=== PATIENT | female | born 1965 | race Caucasian/White ===

== ENCOUNTER 2020-04-02 15:06 | Emergency (ER) | payer BC, SELFPAY ==
[2020-04-02 15:26] VITALS: BP 147/89; PULSE 89; RESP 20; TEMP 36.7; O2SAT 98; BMI 41.9
--- NOTE | 2020-04-02 15:38 | HMH.EDUTC ---
[facility] Disposition Clinical Impression: Viral syndrome Diarrhea Qualifiers: Diarrhea type: unspecified type Qualified Code(s): R19.7 - Diarrhea, unspecified Disposition: Home, Self-Care Condition on Discharge: Good Instructions: Diarrhea, Preventing the Spread of Coronavirus Discharge Instructions Additional Instructions: Drink plenty of fluids. Take tylenol for pain or fever. Return if you begin to have difficulty breathing. Follow up with your regular doctor. GO TO THE ER FOR ANY WORSENING SYMPTOMS Prescriptions: Ondansetron [Zofran 4mg ODT] 4 mg PO Q8HP PRN #12 tab.rapdis PRN Reason: Nausea Transmission Status: Received by [facility] Referrals: PCP,Fabby [Primary Care Provider] - Time of Disposition: 15:44 Medical Decision Making - Medical Records Medical records reviewed: No: I reviewed the patient's medical records. - Papito Inquiry Pt receiving controlled substance: No Vital Signs: 04/02/20 15:26 04/02/20 15:57 Temperature 98.1 F 98.1 F Temperature Source Oral Oral Pulse Rate 89 Pulse Rate [Right Brachial] 89 Respiratory Rate 20 20 Blood Pressure 147/89 H Blood Pressure [Right Arm] 147/89 H Blood Pressure Mean [Right Arm] 108 Blood Pressure Source Automatic Cuff Blood Pressure Source [Right Arm] Automatic Cuff Blood Pressure Position Sitting Blood Pressure Position [Right Arm] Sitting 02 Sat by Pulse Oximetry 98 Oxygen Delivery Method Room Air Orders (Tests/Meds): ORDERS Category Date Time Status Covid-19 Nasal PCR ([facility]) Routine Lab 04/02/20 15:19 Received [facility] HPI - General Stated complaint: covid test Time Seen by Provider: 04/02/20 15:38 Mode of Arrival: Ambulatory Source of Information: Patient Limitations: No Limitations Description of Symptoms (Recalled from Triage Doc. by RN): diarrhea, wants covid test HEENT Symptoms (Recalled from RN notes): No Resp Symptoms (Recalled from RN notes): No Skin Symptoms (Recalled from RN notes): No MS Symptoms (Recalled from RN notes): No Functional Status (Recalled from RN notes): wnl - History of Present Illness Provider Complaint: She states that she has had diarrhea and nausea for the past 1 day. She denies any fever/chills/body aches/cough. - Related Data Previous Rx's Medication Instructions Recorded Promethazine/Dextromethorphan 5 ml PO Q6HP PRN #240 ml 07/12/18 [Promethazine-Dm Syrup] Ondansetron [Zofran 4mg ODT] 4 mg PO Q8HP PRN #12 tab.rapdis 04/02/20 Allergies Allergy/AdvReac Type Severity Reaction Status Date / Time No Known Allergies Allergy Unverified 04/26/17 14:03 - Worker's Comp Is this a Worker's Comp case?: No [facility] History - Hepatitis A Screen Drug use history?: No High risk sexual behaviors?: No History of sexually transmitted infection?: No Currently employed?: No Childcare worker?: No Do you have indoor plumbing?: Yes Do you have electricity?: Yes Attestation statement:: This patient has been screened for Hepatitis A risk factors. I have reviewed the patient's past medical history: Yes - Social History Alcohol Intake: never Occupational Status: employed Housing: house Household Members: spouse ROS Obtained: Yes All systems reviewed & no additional complaints - Constitutional Constitutional: Reports system reviewed and no additional complaints, except as docu - Eyes Eyes: Reports system reviewed and no additional complaints, except as docu - ENT Ears, Nose, Mouth, and Throat: Reports system reviewed and no additional complaints, except as docu - Cardiovascular Cardiovascular: Reports system reviewed and no additional complaints, except as docu - Respiratory Respiratory: Yes system reviewed and no additional complaints, except as docu - Gastrointestinal Gastrointestingal: Reports: system reviewed and no additional complaints, except as docu Physical Exam - General General appearance: alert, in no appar
[2020-04-02 15:57] VITALS: BP 147/89; PULSE 89; RESP 20; TEMP 36.7; O2SAT 98
== END 2020-04-02 15:58 | disposition home or self-care (01) ==
PROVIDERS: Emergency Provider Nurse Practitioner Family
DX: Z20.828 Contact with and (suspected) exposure to other viral communicable diseases (principal); B34.9 Viral infection, unspecified
CPT/HCPCS: 99201; U0003

== ENCOUNTER 2020-05-02 12:53 | Emergency (ER) | payer BC, SELFPAY ==
[2020-05-02 13:01] VITALS: BP 168/80; PULSE 96; RESP 18; TEMP 37.2; O2SAT 96; BMI 28.1
--- NOTE | 2020-05-02 13:11 | HMH.EDGENADL ---
ED Disposition Clinical Impression: Pharyngitis Qualifiers: Pharyngitis/tonsillitis etiology: other specified organisms Qualified Code(s): J02.8 - Acute pharyngitis due to other specified organisms Disposition: Home, Self-Care Condition on Discharge: Good Referrals: PCP,No [Primary Care Provider] - 3 days Time of Disposition: 13:33 - Critical Care Critical Care Time: No Attestation: On 05/02/20, the high probability of a clinically significant, sudden or life threatening deterioration of the following system(s) required my full and direct attention, intervention and personal management. The time I documented below is in addition to time spent performing reported procedures but includes the following listed in this critical care notation. Medical Decision Making - Papito Inquiry Pt receiving controlled substance: No Vital Signs: 05/02/20 13:01 Temperature 98.9 F Temperature Source Oral Pulse Rate [Radial] 96 H Respiratory Rate 18 Blood Pressure [Right Arm] 168/80 H Blood Pressure Mean [Right Arm] 109 Blood Pressure Source [Right Arm] Automatic Cuff Blood Pressure Position [Right Arm] Sitting 02 Sat by Pulse Oximetry 96 Oxygen Delivery Method Room Air - Lab Data Lab Results 05/02/20 12:55: Group A Strep Rapid Negative Orders (Tests/Meds): ORDERS Category Date Time Status Strep Screen Confirmation Stat Micro 05/02/20 12:55 Received Medical Decision Narrative: 55yo F evaluated for sore throat and headache. Strep screen obtained per protocol is negative. Patient endorses significant amount of postnasal drainage. Patient already takes numerous [id number] antiallergy medications. Instructed her she could take Flonase twice daily to help improve the inflammation. Patient voiced understanding. Follow-up with PCP next week. General Adult HPI - General Chief complaint: PAIN Stated complaint: sore throat Time Seen by Provider: 05/02/20 13:11 Mode of Arrival: Ambulatory Limitations: No Limitations Description of Symptoms (Recalled from ER Triage Doc. by RN): Headache, sore throat since yesterday. - History of Present Illness HPI narrative: 55yo F evaluated for sore throat and headache since yesterday. Patient denies fever, nausea/vomiting/diarrhea. Patient denies any known sick contact. Patient denies cough beyond her chronic, allergic cough. - Related Data Previous Rx's Medication Instructions Recorded Promethazine/Dextromethorphan 5 ml PO Q6HP PRN #240 ml 03/06/19 [Promethazine-Dm Syrup] Ondansetron [Zofran 4mg ODT] 4 mg PO Q8HP PRN #12 tab.pauldis 04/02/20 Allergies Allergy/AdvReac Type Severity Reaction Status Date / Time No Known Allergies Allergy Unverified 04/26/17 14:03 [facility] History - Hepatitis A Screen Drug use history?: No High risk sexual behaviors?: No History of sexually transmitted infection?: No Currently employed?: No Childcare worker?: No Do you have indoor plumbing?: Yes Do you have electricity?: Yes Attestation statement:: This patient has been screened for Hepatitis A risk factors. I have reviewed the patient's past medical history: Yes - Social History Alcohol Intake: never Occupational Status: employed Housing: house Household Members: spouse ROS Obtained: Yes All systems reviewed & no additional complaints Physical Exam - General General appearance: alert, in no apparent distress - Head Head exam: atraumatic, normocephalic, normal inspection - Eye Eye exam: Present: normal appearance, PERRL, EOMI - ENT ENT exam: Present: normal exam, normal oropharynx, mucous membranes moist, other (Posterior pharynx erythematous without blistering or exudate) - Neck Neck exam: Present: normal inspection, full ROM, trachea midline. Absent: meningismus, lymphadenopathy - Respiratory Respiratory exam: Present: normal lung sounds bilaterally. Absent: respiratory distress - Cardiovascular Cardiovascular exam: Present:
[2020-05-02 13:21] LABS: Strep Scrn Group A (Rapid) Negative (Negative)
[2020-05-02 13:38] VITALS: BP 168/80; PULSE 96; RESP 18; TEMP 37.2; O2SAT 96
== END 2020-05-02 13:41 | disposition home or self-care (01) ==
PROVIDERS: Emergency Provider Family Medicine
DX: J02.8 Acute pharyngitis due to other specified organisms (principal)
CPT/HCPCS: 87430; 99282

== ENCOUNTER 2020-06-08 14:57 | Emergency (ER) | payer BC, SELFPAY ==
[2020-06-08 15:40] VITALS: BP 134/74; PULSE 85; RESP 14; TEMP 36.6; O2SAT 98; BMI 43.2
--- NOTE | 2020-06-08 15:59 | HMH.EDUTC ---
[facility] Disposition Clinical Impression: Viral syndrome Sinusitis Qualifiers: Sinusitis location: unspecified location Chronicity: acute Recurrence: non-recurrent Qualified Code(s): J01.90 - Acute sinusitis, unspecified Disposition: Home, Self-Care Condition on Discharge: Good Instructions: DI for Sinusitis, Preventing the Spread of Coronavirus Discharge Instructions Additional Instructions: Drink plenty of fluids. Take tylenol for pain or fever. Return if you begin to have difficulty breathing. Follow up with your regular doctor. GO TO THE ER FOR ANY WORSENING SYMPTOMS Prescriptions: Azithromycin [Z-Kartik 250mg Tab*] 250 mg PO UD DOSE PK #6 tab Transmission Status: Received by [facility] Referrals: PCP,No [Primary Care Provider] - Forms: Work/School Release Time of Disposition: 16:09 Medical Decision Making - Medical Records Medical records reviewed: No: I reviewed the patient's medical records. - Papito Inquiry Pt receiving controlled substance: No Vital Signs: 06/08/20 15:40 06/08/20 16:14 Temperature 97.8 F 97.8 F Temperature Source Oral Pulse Rate 85 Pulse Rate [Right Brachial] 85 Respiratory Rate 14 14 Blood Pressure 134/74 Blood Pressure [Right Arm] 134/74 Blood Pressure Mean [Right Arm] 94 Blood Pressure Source [Right Arm] Automatic Cuff Blood Pressure Position [Right Arm] Sitting 02 Sat by Pulse Oximetry 98 Oxygen Delivery Method Room Air - Lab Data Lab Results 06/08/20 15:56: Influenza Type A Ag Negative, Influenza Type B Ag Negative [facility] HPI - General Stated complaint: chills, fever, body aches Time Seen by Provider: 06/08/20 15:59 - History of Present Illness Provider Complaint: She c/o having a cough, body aches, low grade fever and feeling very bad since yesterday evening. She has had both shots of her covid-19 vaccine. She denies any shortness of breath. - Related Data Previous Rx's Medication Instructions Recorded Promethazine/Dextromethorphan 5 ml PO Q6HP PRN #240 ml 07/12/18 [Promethazine-Dm Syrup] Ondansetron [Zofran 4mg ODT] 4 mg PO Q8HP PRN #12 tab.rapdis 04/02/20 Azithromycin [Z-Kartik 250mg Tab*] 250 mg PO UD DOSE PK #6 tab 06/08/20 Allergies Allergy/AdvReac Type Severity Reaction Status Date / Time No Known Allergies Allergy Unverified 04/26/17 14:03 [facility] History - Hepatitis A Screen Attestation statement:: This patient has been screened for Hepatitis A risk factors. I have reviewed the patient's past medical history: Yes - Social History Alcohol Intake: never Occupational Status: employed Housing: house Household Members: spouse ROS Obtained: Yes All systems reviewed & no additional complaints - Constitutional Constitutional: Reports system reviewed and no additional complaints, except as docu - Eyes Eyes: Reports system reviewed and no additional complaints, except as docu - ENT Ears, Nose, Mouth, and Throat: Reports system reviewed and no additional complaints, except as docu - Cardiovascular Cardiovascular: Reports system reviewed and no additional complaints, except as docu - Respiratory Respiratory: Reports system reviewed and no additional complaints, except as docu - Gastrointestinal Gastrointestingal: Reports: system reviewed and no additional complaints, except as docu Physical Exam - General General appearance: alert, in no apparent distress - Head Head exam: atraumatic, normocephalic, normal inspection - Eye Eye exam: Present: normal appearance, PERRL, EOMI - ENT ENT exam: Present: mucous membranes moist, normal external ear exam - Expanded ENT Exam TM/Canal exam: Bilateral TM: erythema Nose exam: Present: sinus tenderness Mouth exam: Present: normal external inspection Teeth exam: Present: normal inspection Throat exam: Present: tonsillar erythema. Absent: tonsillomegaly, tonsillar exudate, R peritonsillar mass, L peritonsillar mass - Neck
[2020-06-08 16:14] VITALS: BP 134/74; PULSE 85; RESP 14; TEMP 36.6; O2SAT 98
[2020-06-08 19:11] LABS: UTC Influenza A Antigen Negative (Negative)
[2020-06-08 19:12] LABS: UTC Influenza B Antigen Negative (Negative)
== END 2020-06-08 16:20 | disposition home or self-care (01) ==
PROVIDERS: Emergency Provider Nurse Practitioner Family
DX: Z20.822 Contact with and (suspected) exposure to COVID-19 (principal); J01.90 Acute sinusitis, unspecified; B34.9 Viral infection, unspecified
CPT/HCPCS: 87804; 99202; G0463; U0003

== ENCOUNTER 2021-03-04 11:49 | Emergency (ER) | payer BC, SELFPAY ==
[2021-03-04 12:50] VITALS: BP 155/94; PULSE 82; RESP 20; TEMP 36.9; O2SAT 98; BMI 38.9
--- NOTE | 2021-03-04 13:36 | HMH.EDUTC ---
[facility] Disposition Clinical Impression: Sinusitis Qualifiers: Sinusitis location: unspecified location Chronicity: acute Recurrence: non-recurrent Qualified Code(s): J01.90 - Acute sinusitis, unspecified Acute bronchitis Qualifiers: Bronchitis organism: unspecified organism Qualified Code(s): J20.9 - Acute bronchitis, unspecified Disposition: Home, Self-Care Condition on Discharge: Good Instructions: DI for Sinusitis Additional Instructions: Drink plenty of fluids. Take tylenol or ibuprofen for pain or fever. Take the medications as directed. Follow up with your regular doctor. GO TO THE ER FOR ANY WORSENING SYMPTOMS Quarantine until you know the results of your covid-19 test. If it is positive, the health department should call you and give you further instructions about your length of Quarantine and other things. Notify your school or workplace of your results and follow their instructions regarding return to work/school. Prescriptions: methylPREDNISolone [Medrol] 4 mg PO DIRECTED 6 Days #21 packet Transmission Status: Received by [facility] #[id number] Benzonatate [Tessalon Perle 100mg Cap] 100 mg PO TIDP PRN #30 cap PRN Reason: Cough Transmission Status: Received by [facility] #[id number] Azithromycin [Z-Kartik 250mg Tab*] 250 mg PO UD DOSE PK #6 tab Transmission Status: Received by [facility] #[id number] Referrals: Provider,Referral, [Primary Care Provider] - Forms: Work/School Release Time of Disposition: 13:44 Medical Decision Making - Medical Records Medical records reviewed: No: I reviewed the patient's medical records. - Papito Inquiry Pt receiving controlled substance: No Vital Signs: 03/04/21 12:50 03/04/21 13:45 Temperature 98.4 F 98.4 F Temperature Source Oral Pulse Rate 82 Pulse Rate [Right Brachial] 82 Respiratory Rate 20 20 Blood Pressure 155/94 H Blood Pressure [Right Arm] 155/94 H Blood Pressure Mean [Right Arm] 114 Blood Pressure Source [Right Arm] Automatic Cuff Blood Pressure Position [Right Arm] Sitting 02 Sat by Pulse Oximetry 98 Oxygen Delivery Method Room Air - Lab Data Lab results reviewed: Yes: I reviewed the patient's lab results. [facility] HPI - General Stated complaint: sore throat, soa, congestion, cough Time Seen by Provider: 03/04/21 13:37 Mode of Arrival: Ambulatory Source of Information: Patient Limitations: No Limitations Description of Symptoms (Recalled from Triage Doc. by RN): PATIENT C/O COUGH, CONGESTION, RUNNY NOSE, HEADACHE, AND SORE THROAT X 4 DAYS HEENT Symptoms (Recalled from RN notes): Yes Resp Symptoms (Recalled from RN notes): Yes Skin Symptoms (Recalled from RN notes): No MS Symptoms (Recalled from RN notes): No Functional Status (Recalled from RN notes): WNL - History of Present Illness Provider Complaint: She c/o sinus congestion and a cough for the past 3 days. She has been vaccinated against covid-19 and she has had a booster shot also. 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 But she thinks that she is getting the bronchitis and sinus infection that she gets every year around this time. - Related Data Previous Rx's Medication Instructions Recorded Promethazine/Dextromethorphan 5 ml PO Q6HP PRN #240 ml 07/12/18 [Promethazine-Dm Syrup] Ondansetron [Zofran 4mg ODT] 4 mg PO Q8HP PRN #12 tab.rapdis 04/02/20 Azithromycin [Z-Kartik 250mg Tab*] 250 mg PO UD DOSE PK #6 tab 06/08/20 Azithromycin [Z-Kartik 250mg Tab*] 250 mg PO UD DOSE PK #6 tab 03/04/21 Benzonatate [Tessalon Perle 100mg 100 mg PO TIDP PRN #30 cap 03/04/21 Cap] methylPREDNISolone [Medrol] 4 mg PO DIRECTED 6 Days #21 03/04/21 packet Allergies Allergy/AdvReac Type Severity Reaction Status Date / Time No Known Allergies Allergy Verified 03/04/21 13:20 - Worker's Comp Is this a Worker's Comp case?: No [facility] History - Hepatitis A Screen Drug use history?: No High risk sexu
[2021-03-04 13:45] VITALS: BP 155/94; PULSE 82; RESP 20; TEMP 36.9; O2SAT 98
== END 2021-03-04 13:48 | disposition home or self-care (01) ==
PROVIDERS: Emergency Provider Nurse Practitioner Family
DX: J01.90 Acute sinusitis, unspecified (principal); J20.9 Acute bronchitis, unspecified; E11.9 Type 2 diabetes mellitus without complications
CPT/HCPCS: 99202; C9803; G0463; U0003; U0005

== ENCOUNTER 2022-03-08 12:56 | Emergency (ER) | payer BC, SELFPAY ==
[2022-03-08 14:15] VITALS: BP 147/87; PULSE 104; RESP 22; TEMP 37.1; O2SAT 94; BMI 37.4
--- NOTE | 2022-03-08 14:19 | EXP.UTC ---
Discharge Plan Disposition Patient Disposition: Home, Self-Care Condition: Good Prescriptions Prescriptions: New benzonatate [benzonatate] 100 mg capsule 100 mg PO TIDP PRN (Reason: Cough) Qty: 30 0RF methylprednisolone 4 mg Tablets,Dose Pack 4 mg PO DIRECTED Qty: 21 0RF amoxicillin-pot clavulanate 875-125 mg Tablet 1 tab PO Q12H Qty: 20 0RF fluconazole [Diflucan] 150 mg tablet 150 mg PO ONCE Qty: 1 2RF No Action promethazine-DM 473 ML syrup 5 ml PO Q6HP PRN (Reason: Cough) Qty: 240 0RF ondansetron 4 MG tablet,disintegrating 4 mg PO Q8HP PRN (Reason: Nausea) Qty: 12 0RF azithromycin 250 MG tablet 250 mg PO UD DOSE PK Qty: 6 0RF Rx Instructions: Take two (2) tablets today, then one (1) tablet days #2 thru #5 azithromycin 250 MG tablet 250 mg PO UD DOSE PK Qty: 6 0RF Rx Instructions: Take two (2) tablets today, then one (1) tablet days #2 thru #5 benzonatate 100 MG capsule 100 mg PO TIDP PRN (Reason: Cough) Qty: 30 0RF methylprednisolone 4 MG tablets,dose pack 4 mg PO DIRECTED 6 Days Qty: 21 0RF Referrals Follow up/Referrals: Travis Gamboa MD [Primary Care Provider] - See instructions Activity Restrictions/Add. Instructions Additional Instructions/Restrictions: Drink plenty of fluids. Take tylenol or ibuprofen for pain or fever. Take the medications as directed. Follow up with your regular doctor. GO TO THE ER FOR ANY WORSENING SYMPTOMS Don't start the oral steroids until tomorrow, since you had the shot here today. Clinical Impressions Clinical Impression: COPD exacerbation Stand Alone Forms Stand Alone Forms: Work/School Release Instructions Patient Instructions: DI for Strep Throat Discharge ED Provider: Deepak Garcia [facility] General Stated complaint: cough,sore throat,headache,congestion Time Seen by Provider: 03/08/22 14:19 History of Present Illness Provider Complaint: She states that for the past 5 days she has had worsening chest congestion. she has a history of copd. Related Data Previous Rx's Medication Instructions Recorded promethazine-DM 6.25 mg-15 mg/5 mL 5 ml PO Q6HP PRN Cough #240 mL 07/12/18 oral syrup ondansetron 4 mg disintegrating 4 mg PO Q8HP PRN Nausea ##12 04/02/20 tablet azithromycin 250 mg tablet 250 mg PO UD DOSE PK #6 tabs 06/08/20 azithromycin 250 mg tablet 250 mg PO UD DOSE PK #6 tabs 03/04/21 benzonatate 100 mg capsule 100 mg PO TIDP PRN Cough #30 caps 03/04/21 methylprednisolone 4 mg tablets in 4 mg PO DIRECTED 6 days #21 03/04/21 a dose pack packets amoxicillin 875 mg-potassium 1 tab PO Q12H #20 tabs 03/08/22 clavulanate 125 mg tablet benzonatate 100 mg capsule 100 mg PO TIDP PRN Cough #30 caps 03/08/22 fluconazole 150 mg tablet 150 mg PO ONCE #1 tab 03/08/22 (Diflucan) methylprednisolone 4 mg tablets in 4 mg PO DIRECTED #21 tabs 03/08/22 a dose pack Allergies Allergy/AdvReac Type Severity Reaction Status Date / Time No Known Allergies Allergy Verified 03/04/21 13:20 PFSH PFS Medical History Anxiety Asthma Depression Diabetes mellitus, type 2 GERD (gastroesophageal reflux disease) History of anemia Hyperlipidemia Hypertension Pulmonary embolism Urinary tract infection Surgical History History of section History of cholecystectomy History of hysterectomy Social History Smoking Status: Former smoker second hand exposure: No alcohol intake: never current occupational status: other Travel in the last 8 weeks: None household members: spouse housing: house ROS Obtained: Yes All systems reviewed & no additional complaints except as documented Constitutional Constitutional: Denies chills and Denies fever(s) Eyes Eyes: Denies eye discharge ENT Ears
[2022-03-08 14:29] LABS: UTC Strep Screen (Rapid) Negative (Negative)
[2022-03-08 15:03] VITALS: BP 147/87; PULSE 104; RESP 22; TEMP 37.1; O2SAT 94
== END 2022-03-08 15:06 | disposition home or self-care (01) ==
PROVIDERS: Emergency Provider Nurse Practitioner Family; PCP Internal Medicine
DX: J02.9 Acute pharyngitis, unspecified (principal); J44.1 Chronic obstructive pulmonary disease with (acute) exacerbation; R51.9 Headache, unspecified; R11.0 Nausea; D64.9 Anemia, unspecified; I10 Essential (primary) hypertension; K21.9 Gastro-esophageal reflux disease without esophagitis; F32.A Depression, unspecified; F41.9 Anxiety disorder, unspecified; Z79.51 Long term (current) use of inhaled steroids; Z79.52 Long term (current) use of systemic steroids; Z79.899 Other long term (current) drug therapy; Z87.891 Personal history of nicotine dependence; Z86.711 Personal history of pulmonary embolism; Z87.440 Personal history of urinary (tract) infections
CPT/HCPCS: 87880; 96372; 99213; G0463; J0696

== ENCOUNTER 2022-12-01 13:07 | Emergency (ER) | payer BC, SELFPAY ==
[2022-12-01 14:20] VITALS: BP 127/80; PULSE 80; RESP 18; TEMP 36.8; O2SAT 98; BMI 32.9
--- NOTE | 2022-12-01 15:22 | EXP.UTC ---
Discharge Plan Disposition Patient Disposition: Home, Self-Care Condition: Good Prescriptions Prescriptions: No Action promethazine-DM 473 ML syrup 5 ml PO Q6HP PRN (Reason: Cough) Qty: 240 0RF ondansetron 4 MG tablet,disintegrating 4 mg PO Q8HP PRN (Reason: Nausea) Qty: 12 0RF azithromycin 250 MG tablet 250 mg PO UD DOSE PK Qty: 6 0RF Rx Instructions: Take two (2) tablets today, then one (1) tablet days #2 thru #5 azithromycin 250 MG tablet 250 mg PO UD DOSE PK Qty: 6 0RF Rx Instructions: Take two (2) tablets today, then one (1) tablet days #2 thru #5 benzonatate 100 MG capsule 100 mg PO TIDP PRN (Reason: Cough) Qty: 30 0RF methylprednisolone 4 MG tablets,dose pack 4 mg PO DIRECTED 6 Days Qty: 21 0RF benzonatate [benzonatate] 100 mg capsule 100 mg PO TIDP PRN (Reason: Cough) Qty: 30 0RF methylprednisolone 4 mg Tablets,Dose Pack 4 mg PO DIRECTED Qty: 21 0RF amoxicillin-pot clavulanate 875-125 mg Tablet 1 tab PO Q12H Qty: 20 0RF fluconazole [Diflucan] 150 mg tablet 150 mg PO ONCE Qty: 1 2RF Referrals Follow up/Referrals: Travis Gamboa MD [Primary Care Provider] - See instructions Activity Restrictions/Add. Instructions Additional Instructions/Restrictions: Once home take 50mg of Benadryl with a glass of tea then lay down and rest. Clinical Impressions Clinical Impression: Migraine headache Qualifiers: Migraine type: unspecified Status migrainosus presence: with status migrainosus Intractability: intractable Qualified Code(s): G43.911 - Migraine, unspecified, intractable, with status migrainosus Instructions Patient Instructions: DI for Chronic Pain -- Adult, DI for Migraine Discharge ED Provider: Crystal Frankel [facility] General Stated complaint: TILLEY Mode of Arrival: Ambulatory Source of Information: Patient Limitations: No Limitations Time Seen by Provider: 12/01/22 15:21 Description of Symptoms (Recalled from Triage Doc. by RN): PATIENT C/O HEADACHE X 4 DAYS HEENT Symptoms (Recalled from RN notes): Yes Resp Symptoms (Recalled from RN notes): No Skin Symptoms (Recalled from RN notes): No MS Symptoms (Recalled from RN notes): No Functional Status (Recalled from RN notes): WNL History of Present Illness Provider Complaint: Pt relates that she has had a headache for the past 4 days. She reports nausea yesterday that caused her to leave work early. She reports that she was treated years ago for what they called a cluster headache . She states that she has taken Excederine Migraine without any benefit. Related Data Previous Rx's Medication Instructions Recorded promethazine-DM 6.25 mg-15 mg/5 mL 5 ml PO Q6HP PRN Cough #240 mL 07/12/18 oral syrup ondansetron 4 mg disintegrating 4 mg PO Q8HP PRN Nausea ##12 04/02/20 tablet azithromycin 250 mg tablet 250 mg PO UD DOSE PK #6 tabs 06/08/20 azithromycin 250 mg tablet 250 mg PO UD DOSE PK #6 tabs 03/04/21 benzonatate 100 mg capsule 100 mg PO TIDP PRN Cough #30 caps 03/04/21 methylprednisolone 4 mg tablets in 4 mg PO DIRECTED 6 days #21 03/04/21 a dose pack packets amoxicillin 875 mg-potassium 1 tab PO Q12H #20 tabs 03/08/22 clavulanate 125 mg tablet benzonatate 100 mg capsule 100 mg PO TIDP PRN Cough #30 caps 03/08/22 fluconazole 150 mg tablet 150 mg PO ONCE #1 tab 03/08/22 (Diflucan) methylprednisolone 4 mg tablets in 4 mg PO DIRECTED #21 tabs 03/08/22 a dose pack Allergies Allergy/AdvReac Type Severity Reaction Status Date / Time No Known Allergies Allergy Verified 03/04/21 13:20 Worker's Comp Is this a Worker's Comp case?: No [facility] Disclaimer: The information contained in this section may have been updated after the patient was seen, as this information can be updated by other users. Medical History Anxiety Asthma Depression Diabetes mellitus, type 2 GERD (gastroesophageal reflux disease) H
[2022-12-01 15:35] VITALS: BP 127/80; PULSE 80; RESP 18; TEMP 36.8; O2SAT 98
== END 2022-12-01 15:44 | disposition home or self-care (01) ==
PROVIDERS: Emergency Provider Nurse Practitioner Family; PCP Internal Medicine
DX: G43.911 Migraine, unspecified, intractable, with status migrainosus (principal); E11.9 Type 2 diabetes mellitus without complications; K21.9 Gastro-esophageal reflux disease without esophagitis; I10 Essential (primary) hypertension; E78.5 Hyperlipidemia, unspecified; J45.909 Unspecified asthma, uncomplicated; F41.9 Anxiety disorder, unspecified; F32.A Depression, unspecified
CPT/HCPCS: 96372; 99212; 99214; G0463

== ENCOUNTER 2024-04-27 20:49 | Inpatient (IN) | payer BC, SELFPAY ==
[2024-04-27] VITALS (7 sets, daily range): BP systolic 119–162; BP diastolic 65–75; PULSE 100–137; RESP 17–26; TEMP 37.8–39.6; O2SAT 88–94; BMI 35.9
--- NOTE | 2024-04-27 20:54 | ED_ITS ---
Discharge Plan Disposition Patient Disposition: Admitted Condition: Fair Clinical Impressions Clinical Impression: Sepsis Discharge ED Provider: Michael Elizabeth Adult HPI General Chief complaint: Upper Respiratory Infection Stated complaint: burning with urination,cough,fever,vomiting Time Seen by Provider: 04/27/24 20:53 History of Present Illness HPI narrative: Patient is a 59-year-old past medical history of asthma, migraines, hypertension, presenting for dysuria, cough and fever. According to patient she started feeling bad yesterday and was having dribbling and pain with urination. She then woke up this morning and was having shortness of breath and a cough. She did not take her temperature at home, but has felt warm. She did not take any medications prior to arrival but feels that she is having another UTI. Additionally patient said that she is having some left-sided back pain and has had a history of pyelonephritis. At this time patient denies chest pain, nausea, vomiting, diarrhea Related Data Previous Rx's ?Medication ?Instructions ?Recorded promethazine-DM 6.25 mg-15 mg/5 mL 5 ml PO Q6HP PRN Cough #240 mL 07/12/18 oral syrup ondansetron 4 mg disintegrating 4 mg PO Q8HP PRN Nausea ##12 04/02/20 tablet azithromycin 250 mg tablet 250 mg PO UD DOSE PK #6 tabs 06/08/20 azithromycin 250 mg tablet 250 mg PO UD DOSE PK #6 tabs 03/04/21 benzonatate 100 mg capsule 100 mg PO TIDP PRN Cough #30 caps 03/04/21 methylprednisolone 4 mg tablets in 4 mg PO DIRECTED 6 days #21 03/04/21 a dose pack packets amoxicillin 875 mg-potassium 1 tab PO Q12H #20 tabs 03/08/22 clavulanate 125 mg tablet benzonatate 100 mg capsule 100 mg PO TIDP PRN Cough #30 caps 03/08/22 fluconazole 150 mg tablet 150 mg PO ONCE #1 tab 03/08/22 (Diflucan) methylprednisolone 4 mg tablets in 4 mg PO DIRECTED #21 tabs 03/08/22 a dose pack Allergies Allergy/AdvReac Type Severity Reaction Status Date / Time No Known Allergies Allergy Verified 03/04/21 13:[address] [facility] Disclaimer: The information contained in this section may have been updated after the patient was seen, as this information can be updated by other users. Medical History History of anemia Urinary tract infection GERD (gastroesophageal reflux disease) Depression Anxiety Pulmonary embolism Diabetes mellitus, type 2 Asthma Hyperlipidemia Hypertension Surgical History History of hysterectomy History of cholecystectomy History of section Social History Smoking Status: Never smoker second hand exposure: No alcohol intake: never current occupational status: other Travel in the last 8 weeks: None household members: spouse housing: house Have you lived/traveled outside US in past 30 days?: No Contact w/someone who lives/traveled outside US past 30 days?: No Exposure to someone with infectious disease in past 14 days?: No Do you have a fever (greater than 100.4 F or 38 C)?: Yes Have you tested positive for COVID-19: No Exposed to someone with COVID-19 in past 14 days?: No Do you have a sore throat?: No Do you have a cough?: Yes Do you have any weakness?: No Do you have any diarrhea?: No Are you experiencing any unusual bleeding?: No Do you have any muscle aches/pain?: No Do you have any abdominal pain?: No Are you experiencing loss of taste or smell?: No Other Medical History Have you received the Flu Vaccine for this season: Yes Have you received the Pneumonia Vaccine: Yes ROS Obtained: Yes All systems reviewed & no additional complaints except as documented Physical Exam General General appearance: alert and in no apparent distress Head Head exam: atraumatic Eye Eye exam: Present normal appearance ENT ENT exam: Present normal exam Chest Chest inspection: Present symmetric chest wall rise Respiratory Respiratory exam: Present normal lung sounds bilaterally; Absent respiratory distress Cardiovascular Cardiovascular exam: Present normal rhythm and tachycardia Abdominal Exam Abdominal exam: Present soft and tenderness (Left CVA tenderness); Absent guarding or rebound Extremities Exam Extremities exam: Present full ROM; Absent tenderness Neurological Exam Neurological exam: Present alert and oriented X3 Psychiatric Psychiatric exam: Present normal affect Skin Skin exam: Present warm and normal color Medical Decision Making Medical Records Screening: Per USPSTF and CDC recommendations, given the prevalence of disease in our region, it is our hospital?s policy to screen for HIV and viral Hepatitis for all patients aged 18 and over and those with ongoing risk factors. [place] Inquiry Pt receiving controlled substance: No Vital Signs: 04/27/24 20:51 04/27/24 21:34 04/27/24 22:00 Temperature 103.2 F H Temperature Source Oral Pulse Rate 115 H Pulse Rate [Left Radial] 137 H Respiratory Rate 25 H 19 26 H Blood Pressure 162/74 H 119/69 Blood Pressure [Right Arm] 138/65 Blood Pressure Mean 103 Blood Pressure Mean [Right Arm] 89 Blood Pressure Source Blood Pressure Source [Right Arm] Automatic Cuff Blood Pressure Position Blood Pressure Position [Right Arm] Sitting 02 Sat by Pulse Oximetry 94 L 89 L Oxygen Delivery Method Room Air Oxygen Flow Rate (LPM) 04/27/24 22:30 04/27/24 22:54 Temperature 100.1 F H 100.1 F H Temperature Source Oral Pulse Rate 122 H 125 H Pulse Rate [Left Radial] Respiratory Rate 18 17 Blood Pressure 130/75 130/75 Blood Pressure [Right Arm] Blood Pressure Mean Blood Pressure Mean [Right Arm] Blood Pressure Source Automatic Cuff Blood Pressure Source [Right Arm] Blood Pressure Position Sitting Blood Pressure Position [Right Arm] 02 Sat by Pulse Oximetry 88 L Oxygen Delivery Method Nasal Cannula Oxygen Flow Rate (LPM) 1 Lab Data Lab Results 04/27/24 21:07: Urine Color Yellow, Urine Appearance Clear, Urine pH 6.5, Ur Specific [place] 1.015, Urine Protein Trace, Urine Glucose (UA) Negative, Urine Ketones Negative, Urine Blood Trace-i, Urine Nitrate Negative, Urine Bilirubin Negative, Urine Urobilinogen 0.2, Ur Leukocyte Esterase Trace, Urine RBC 50-100, Urine WBC Tntc, Ur Squamous Epith Cells 10-20, Urine Bacteria 2+, Urine Mucus 1+ 04/27/24 21:20: WBC 14.2 H, RBC 4.33, Hgb 13.1, Hct 38.3, MCV 88.5, MCH 30.3, MCHC 34.2, RDW 14.3, Plt Count 190, MPV 11.2 H, Neut % (Auto) 86.2 H, Lymph % (Auto) 8.1 L, [place] % (Auto) 4.1, Eos % (Auto) 0.4, Baso % (Auto) 0.4, Neut # (Auto) 12.3 H, Lymph # (Auto) 1.2, [place] # (Auto) 0.6, Eos # (Auto) 0.1, Baso # (Auto) 0.1, Total Counted 100, Neutrophils % (Manual) 84 H, Lymphocytes % (Manual) 12, Monocytes % (Manual) 3, Eosinophils % (Manual) 1, Platelet Estimate Normal, Stomatocytes 1+, PT 10.0 L, INR 0.88 L, APTT 24.2, Sodium 132 L, Potassium 4.0, Chloride 107, Carbon Dioxide 23, Anion Gap 6.0, BUN 10, Creatinine 0.60, Estimated Creat Clear 154, Estimated GFR 102, Est GFR ( Amer) 123, Glucose 148 H, Lactate 0.9, Calcium 9.1, Total Bilirubin 1.0, AST 45 H, ALT 37, Alkaline Phosphatase 94, Total Protein 7.2, Albumin 4.2, Globulin 3.0, Albumin/Globulin Ratio 1.4, HIV Ag/Ab Combo Qual Negative 04/27/24 21:20 04/27/24 21:20 Orders (Tests/Meds): ED MEDICATIONS Generic Name Dose Route Start Last Admin Trade Name Freq PRN Reason Stop Dose Admin Albuterol/Ipratropium 3 ml 04/28/24 00:00 Ipratropium/Albuterol 3 Ml Neb IH 05/28/24 00:00 Q6RT SHERLY Lactated Ringer's 2,940 mls @ 999 mls/hr 04/27/24 21:16 04/27/24 21:21 Lactated Ringer's 1000 Ml Bag IV 04/28/24 00:12 999 mls/hr .[id number] ONE Administration Ceftriaxone Sodium 2 gm/ 100 mls @ 200 mls/hr 04/27/24 22:00 04/27/24 22:01 Sodium Chloride IV 05/07/24 21:59 200 mls/hr Q24H SHERLY Administration Azithromycin 500 mg/ Sodium 250 mls @ 250 mls/hr 04/27/24 22:00 04/27/24 23:39 Chloride IV 05/07/24 21:59 250 mls/hr Q24H SHERLY Administration Sodium Chloride 1,000 mls @ 75 mls/hr 04/27/24 23:15 04/27/24 23:40 Sod Chlor 0.9% 1000ml Bag IV 05/27/24 23:14 75 mls/hr .[id number] SHERLY Administration Insulin Human Lispro 0 unit 04/28/24 06:00 Humalog 100 Units/Ml 10ml Vial ([facility]) SUBCUT 05/28/24 05:59 ACHS [facility] Protocol Sodium Chloride 10 ml 04/27/24 21:16 Sodium Chloride 0.9% 10ml Flush Syringe IV 05/27/24 21:15 NEEDED PRN Maintain IV Site Sodium Chloride 3 ml 04/27/24 22:55 Sodium Chloride 3% 15ml [facility] 05/27/24 22:54 ONCE PRN INDUCE [employer] Sodium Chloride 10 ml 04/27/24 23:15 Sodium Chloride 0.9% 10ml Flush Syringe IV 05/27/24 23:14 NEEDED PRN Maintain IV Site Discontinued Medications Generic Name Dose Route Start Last Admin Trade Name Freq PRN Reason Stop Dose Admin Acetaminophen 1,000 mg 04/27/24 21:57 04/27/24 22:01 Acetaminophen 500mg Tab PO 04/27/24 21:58 1,000 mg ONCE ONE Administration Albuterol/Ipratropium 9 ml 04/27/24 21:51 04/27/24 22:17 Ipratropium/Albuterol 3 Ml [facility] 04/27/24 21:52 9 ml ONCE ONE Administration Magnesium Sulfate 2 gm in 50 mls @ 50 mls/hr 04/27/24 21:34 04/27/24 21:49 Magnesium Sulfate 2gm/50ml Premix IV 04/27/24 22:33 50 mls/hr ONCE ONE Administration ORDERS Category Date Time Status XR chest 2V Stat Exams 04/27/24 21:34 Completed Activated Partial Thrombo Time Stat Lab 04/27/24 21:20 Completed Complete Blood Count Auto Diff Stat Lab 04/27/24 21:20 Completed Comprehensive Metabolic Panel Stat Lab 04/27/24 21:20 Completed Full Resp Panel w/COVID ([facility]) Routine Lab 04/27/24 21:21 Received HIV Combo Stat Lab 04/27/24 21:20 Completed Hep C Ab with Reflex to RNA Stat Lab 04/27/24 21:20 Received Lactic Acid Stat Lab 04/27/24 21:20 Completed Prothrombin Time INR Stat Lab 04/27/24 21:20 Completed UA [Urinalysis and Microscopic] Stat Lab 04/27/24 21:07 Completed Blood Culture Stat Micro 04/27/24 21:20 Received Urine Culture Stat Micro 04/27/24 21:07 Received EKG Request [ECG Request] Stat Y 04/27/24 21:18 Ordered Medical Decision Narrative: In summary, this 59-year-old female presents to the emergency department today with fever. On initial evaluation patient is tachycardic, coughing mildly tachypneic but on room air. Patient is not only having dysuria but cough and congestion. Upon arrival a sepsis bolus was started and labs ordered. Patient is febrile to 103. Differential diagnosis includes but is not limited to pneumonia, bacteremia, UTI, pyelonephritis. ECG personally interpreted demonstrates tachycardia, atrial flutter, no ST elevations, intervals within normal limits. Patient received ceftriaxone and azithromycin, magnesium for treatment. Labs personally reviewed demonstrate leukocytosis mild hyponatremia, mild hyperglycemia, urinalysis not suspicious for UTI. XR personally interpreted demonstrates right lower lobe pneumonia. I had an interactive discussion with hospital medicine team due to concern for a pneumonia. Patient was started on community-acquired pneumonia antibiotics and was given DuoNebs as well. Patient was placed on 1 L nasal cannula for desaturations into the mid 80%. Patient was ultimately admitted to the hospital medicine team for further management.. Critical Care Critical Care Time Critical Care Time: No
--- NOTE | 2024-04-27 21:10 | PC.NURSE ---
MD Elizabeth notified of sepsis alert
--- NOTE | 2024-04-27 21:17 | ECG_ITS ---
APPROVED REPORT Exam: Resting ECG HR:136 bpm ECG Measurements Heart Rate 136 AXES QRSd 85 QRS 213 QT 308 T 56 QTc 388 Conclusion Sinus Tachycardia POSSIBLE RIGHT VENTRICULAR HYPERTROPHY [SOME/ALL OF: PROMINENT R IN V1, LATE TRANSITION, RAD, PAWAN, SSS] POSSIBLE ANTERIOR MYOCARDIAL INFARCTION , PROBABLY OLD [30 ms Q WAVE IN V3/V4, OR R < 0.2 mV IN V4] POSSIBLE INFERIOR MYOCARDIAL INFARCTION , PROBABLY OLD [30 ms Q WAVE IN II/aVF] ABNORMAL ECG Electronically signed by : VITA CAR, 04/28/2024 07:10:19
[2024-04-27] MEDS: LACTATED RINGERS 999 ML IV (21:21)
--- NOTE | 2024-04-27 21:34 | XR_ITS ---
PROCEDURE INFORMATION: Exam: XR Chest Exam date and time: 04/27/2024 9:32 PM Age: 59 years old Clinical indication: Shortness of breath; Additional info: Soa/ fever workup TECHNIQUE: Imaging protocol: Radiologic exam of the chest. Views: 2 views. COMPARISON: No relevant prior studies available. FINDINGS: Lungs: There are few linear densities at the left lung base consistent with subsegmental atelectasis and/or scarring. No consolidation Pleural spaces: Unremarkable. No pleural effusion. No pneumothorax. Heart/Mediastinum: No cardiomegaly. There are coarse calcifications in the midline posterior to the cardiac silhouette which may represent calcified lymph nodes. Vasculature: Unremarkable. Bones/joints: Mild degenerative changes of the thoracic spine. IMPRESSION: Subsegmental atelectasis and/or scarring left lung base.
[2024-04-27 21:44] LABS: Hematocrit 38.3 % (37.0-47.0); Hemoglobin 13.1 g/dL (12.2-16.2); Mean Corpuscular HGB Conc 34.2 g/dL (31.8-35.4); Mean Corpuscular Hemoglobin 30.3 pg (27.0-31.2); Mean Corpuscular Volume 88.5 fl (81-99); Red Blood Count 4.33 M/mm3 (4.20-5.40); White Blood Count 14.2 K/mm3 (4.8-10.8)
[2024-04-27 21:45] LABS: Basophils # 0.1 K/mm3 (0-0.2); Basophils % 0.4 % (0.1-2.0); Eosinophils # 0.1 K/mm3 (0.0-0.4); Eosinophils % 0.4 % (0.1-12.0); Lymphocytes # 1.2 K/mm3 (0.7-4.5); Lymphocytes % 8.1 % (10-50); Mean Platelet Volume 11.2 fl (7.4-10.4); Monocytes # 0.6 K/mm3 (0.1-1.0); Monocytes % 4.1 % (1.7-9.3); Neutrophils # 12.3 K/mm3 (1.8-7.8); Neutrophils % 86.2 % (37.0-80.0); Platelet Count 190 K/mm3 (142-424); Red Cell Distribution Width 14.3 % (11.5-17.5)
[2024-04-27 21:46] LABS: MANUAL DIFFERENTIAL MANUAL DIFFERENTIAL (MANUAL DIFF)
[2024-04-27 21:49] LABS: Albumin Level 4.2 g/dl (3.5-5.0); Chloride 107 mmol/L (98-107); Sodium 132 mmol/L (136-145)
[2024-04-27] MEDS: MAGNESIUM SULFATE IN WATER 2 GM/50 ML PIGGYBACK IV (21:49)
--- NOTE | 2024-04-27 21:51 | PC.NURSE ---
patient back in room
[2024-04-27 21:52] LABS: Alanine Aminotransferase 37 U/L (12-78); Albumin/Globulin Ratio 1.4 (1.1-1.8); Alkaline Phosphatase 94 U/L (38-126); Aspartate Amino Transferase 45 U/L (14-36); Blood Urea Nitrogen 10 mg/dl (7-17); Calcium 9.1 mg/dl (8.4-10.2); Carbon Dioxide 23 mmol/L (22.0-30.0); Creatinine Clearance Estimated 154 mL/min (50-200); Estimated Glomerular Filt Rate 102 ml/min (>60); GFR (African American) 123 ML/MIN (>60); Glucose 148 mg/dl (74-100); Lactic Acid 0.9 mmol/L (0.7-2.1); Total Protein,Serum 7.2 g/dl (6.3-8.2)
[2024-04-27] MEDS: ACETAMINOPHEN 500MG TAB 1000 MG PO (22:01)
[2024-04-27] MEDS: CEFTRIAXONE SODIUM 2 GM in 0.9 % SODIUM CHLORIDE 100 ML IV (22:01)
[2024-04-27 22:02] LABS: Appearance,Urine CLEAR (Clear); Bilirubin,Urine Negative (Negative); Blood, Urine TRACE-I (Negative); Color,Urine YELLOW (Yellow); Glucose,Urine (UA) Negative (Negative); Ketones,Urine Negative (Negative); Leukocyte Esterase,Urine TRACE (Negative); Microscopic, Urine URINE MICROSCOPIC (MICROSCOPIC); Nitrate,Urine Negative (Negative); PH,Urine 6.5 (5.0-8.5); Protein,Urine TRACE (Negative); Specific Gravity, Urine 1.015 (1.005-1.030); Urobilinogen,Urine 0.2 EU/dl (0.2)
[2024-04-27] MEDS: IPRATROPIUM/ALBUTEROL 3 ML NEB 9 ML IH (22:17)
[2024-04-27 22:21] LABS: Bacteria,Urine 2+ /lpf; Mucus,Urine 1+ /lpf; RBC,Urine 50-100 #/hpf (0-3); WBC,Urine TNTC #/hpf (0-3)
--- NOTE | 2024-04-27 22:41 | PC.NURSE ---
attempted to call report to Nancy RN at this time.
[2024-04-27 22:45] LABS: Adenovirus,PCR Not Detected (NotDetected); Bordetella Pertussis Not Detected (NotDetected); Chlamydophila Pneumoniae, PCR Not Detected (NotDetected); Coronavirus 19, PCR Not Detected (NotDetected); Coronavirus 229E Not Detected (NotDetected); Coronavirus NL63 Not Detected (NotDetected); Coronavirus OC43 Not Detected (NotDetected); Coronovirus HKU1,PCR Not Detected (NotDetected); Human Metapneumovirus Not Detected (NotDetected); Influenza A, PCR Not Detected (NotDetected); Influenza AH1, 2009 Not Detected (NotDetected); Influenza AH1, PCR Not Detected (NotDetected); Influenza AH3,PCR Not Detected (NotDetected); Influenza B, PCR Not Detected (NotDetected); Mycoplasma Pneumoniae, PCR Not Detected (NotDetected); Parainfluenza 1, PCR Not Detected (NotDetected); Parainfluenza 2, PCR Not Detected (NotDetected); Parainfluenza 3, PCR Not Detected (NotDetected); Parainfluenza 4, PCR Not Detected (NotDetected); Respiratory Syncytial Virus Not Detected (NotDetected); Rhinovirus/Enterovirus Not Detected (NotDetected)
[2024-04-27 22:49] LABS: Eosinophils % 1 % (0-3); Lymphocytes % 12 % (10-50); Monocytes % 3 % (2-9); Neutrophils % 84 % (42-76); Total Cells Counted 100
[2024-04-27 22:50] LABS: Stomatocytes 1+
--- NOTE | 2024-04-27 22:50 | PC.NURSE ---
Called report to Nancy IRIZARRY at this time.
[2024-04-27 22:51] LABS: Platelet Estimate Normal
[2024-04-27 22:52] LABS: Activated Partial Thrombo Time 24.2 seconds (22.8-30.6); INR 0.88 (0.9-1.1)
--- NOTE | 2024-04-27 22:56 | P.HP_ITS ---
<Statement entered by Danny Hilton MD - 05/06/24 13:10> Rounded on patient after nurse practitioner. ?Personally examined and interviewed patient. Agree with exam findings and care plan as documented. History of Present Illness *Admission Date: 04/27/24 *Reason for visit:: Burning with urination, cough, fevers, body aches, chills *History of present illness: Ms. Dillon is a 59-year-old female with a past medical history that is positive for Asthma, Hypertension, Depression/Anxiety, Diabetes, Fatty Liver Disease who presents to [facility] with a 1-day history of burning with urination, cough, fevers, body aches, chills. 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 She reports that she has been taking Tylenol and Ibuprofen for fevers. In the ER, she underwent a Cxray that showed a consolidation in the right lower lobe. Urinalysis showed too numerous to count WBC, 2 plus bacteria. CBC showed a WBC 14.2. Lactic Acid, Covid, Flu and RSV are currently pending. HR was 137, RR was 25 and oxygen was 88 percent on room air. In the ER, the patient received: Rocephin 2 grams iv, Azithromycin 500 mg iv, LR x 1 liter. The patient is admitted with initial impression: Sepsis, Right Lower Lobe Pneumonia, UTI and Acute Hypoxic Respiratory Failure. [facility] Disclaimer: The information contained in this section may have been updated after the patient was seen, as this information can be updated by other users. Medical History History of anemia Urinary tract infection GERD (gastroesophageal reflux disease) Depression Anxiety Pulmonary embolism Diabetes mellitus, type 2 Asthma Hyperlipidemia Hypertension Surgical History History of hysterectomy History of cholecystectomy History of section Social History Smoking Status: Never smoker second hand exposure: No alcohol intake: never current occupational status: other Travel in the last 8 weeks: None household members: spouse housing: house Have you lived/traveled outside US in past 30 days?: No Contact w/someone who lives/traveled outside US past 30 days?: No Exposure to someone with infectious disease in past 14 days?: No Do you have a fever (greater than 100.4 F or 38 C)?: Yes Have you tested positive for COVID-19: No Exposed to someone with COVID-19 in past 14 days?: No Do you have a sore throat?: No Do you have a cough?: Yes Do you have any weakness?: No Do you have any diarrhea?: No Are you experiencing any unusual bleeding?: No Do you have any muscle aches/pain?: No Do you have any abdominal pain?: No Are you experiencing loss of taste or smell?: No Other Medical History Have you received the Flu Vaccine for this season: Yes Have you received the Pneumonia Vaccine: Yes Review of Systems Review of Systems Review of systems:: pertinent systems reviewed and negative unless documented below Constitutional Constitutional: Reports body ache(s), Reports chills, Reports fever(s) and Reports headache(s) Eyes Eyes: Reports system reviewed and no additional complaints, except as documented ENT Ears, Nose, Mouth, and Throat: Reports system reviewed and no additional complaints, except as documented and Reports headache(s) *Cardiovascular Cardiovascular: Reports system reviewed and no additional complaints, except as documented and Reports dyspnea *Respiratory Respiratory: Reports chest congestion, Reports cough and Reports dyspnea *Gastrointestinal Gastrointestinal: Reports system reviewed and no additional complaints, except as documented *Genitourinary Genitourinary: Reports dysuria and Reports urinary urgency *Musculoskeletal Musculoskeletal: Reports myalgias Integumentary/Breasts Skin/Breast: Reports system reviewed and no additional complaints, except as doc umented *Neurologic Neurologic: Reports headache(s) Psychiatric Psychiatric: Reports system reviewed and no additional complaints, except as documented Endocrine Endocrine: Reports system reviewed and no additional complaints, except as documented Hematologic/Lymphatic Hematologic/Lymphatic: Reports system reviewed and no additional complaints, except as documented Allergic/Immunologic Allergic/Immunologic: Reports system reviewed and no additional complaints, except as documented Meds Home Medications and Allergies Home Medications ?Medication ?Instructions ?Recorded ?Confirmed ?Type promethazine-DM 6.25 mg-15 mg/5 mL 5 ml PO Q6HP PRN Cough #240 mL 07/12/18 Rx oral syrup ondansetron 4 mg disintegrating 4 mg PO Q8HP PRN Nausea ##12 04/02/20 Rx tablet azithromycin 250 mg tablet 250 mg PO UD DOSE PK #6 tabs 06/08/20 Rx azithromycin 250 mg tablet 250 mg PO UD DOSE PK #6 tabs 03/04/21 Rx benzonatate 100 mg capsule 100 mg PO TIDP PRN Cough #30 caps 03/04/21 Rx methylprednisolone 4 mg tablets in 4 mg PO DIRECTED 6 days #21 03/04/21 Rx a dose pack packets amoxicillin 875 mg-potassium 1 tab PO Q12H #20 tabs 03/08/22 Rx clavulanate 125 mg tablet benzonatate 100 mg capsule 100 mg PO TIDP PRN Cough #30 caps 03/08/22 Rx fluconazole 150 mg tablet 150 mg PO ONCE #1 tab 03/08/22 Rx (Diflucan) methylprednisolone 4 mg tablets in 4 mg PO DIRECTED #21 tabs 03/08/22 Rx a dose pack New Prescriptions to Start Prescriptions: Allergies Allergy/AdvReac Type Severity Reaction Status Date / Time No Known Allergies Allergy Verified 03/04/21 13:20 Exam Data for Last 24 hours Vital signs and Labs for Last 24 Hours: Temp Pulse Resp BP Pulse Ox O2 Del Method O2 Flow Rate 100.1 F H 125 H 17 130/75 88 L Nasal Cannula 1 04/27/24 22:54 04/27/24 22:54 04/27/24 22:54 04/27/24 22:54 04/27/24 22:30 04/27/24 22:54 04/27/24 22:54 Laboratory Results - last 24 hr 04/27/24 21:07: Urine Color Yellow, Urine Appearance Clear, Urine pH 6.5, Ur Specific [place] 1.015, Urine Protein Trace, Urine Glucose (UA) Negative, Urine Ketones Negative, Urine Blood Trace-i, Urine Nitrate Negative, Urine Bilirubin Negative, Urine Urobilinogen 0.2, Ur Leukocyte Esterase Trace, Urine RBC 50-100, Urine WBC Tntc, Ur Squamous Epith Cells 10-20, Urine Bacteria 2+, Urine Mucus 1+ 04/27/24 21:20: WBC 14.2 H, RBC 4.33, Hgb 13.1, Hct 38.3, MCV 88.5, MCH 30.3, MCHC 34.2, RDW 14.3, Plt Count 190, MPV 11.2 H, Neut % (Auto) 86.2 H, Lymph % (Auto) 8.1 L, [place] % (Auto) 4.1, Eos % (Auto) 0.4, Baso % (Auto) 0.4, Neut # (Auto) 12.3 H, Lymph # (Auto) 1.2, [place] # (Auto) 0.6, Eos # (Auto) 0.1, Baso # (Auto) 0.1, Total Counted 100, Neutrophils % (Manual) 84 H, Lymphocytes % (Manual) 12, Monocytes % (Manual) 3, Eosinophils % (Manual) 1, Platelet Estimate Normal, Stomatocytes 1+, PT 10.0 L, INR 0.88 L, APTT 24.2, Sodium 132 L, Potassium 4.0, Chloride 107, Carbon Dioxide 23, Anion Gap 6.0, BUN 10, Creatinine 0.60, Estimated Creat Clear 154, Estimated GFR 102, Est GFR ( Amer) 123, Glucose 148 H, Lactate 0.9, Calcium 9.1, Total Bilirubin 1.0, AST 45 H, ALT 37, Alkaline Phosphatase 94, Total Protein 7.2, Albumin 4.2, Globulin 3.0, Albumin/Globulin Ratio 1.4 I & O for Last 24 hours: Intake & Output 04/24/24 04/25/24 04/26/24 04/27/24 23:59 23:59 23:59 23:59 Weight 97.976 kg *Routine HEENT Exam Head: Present normocephalic Eye: Present PERRL and normal accommodation ENT: Present mucous membranes dry *Routine Neck Exam Neck: Present supple and full ROM *Routine Respiratory Exam Respiratory: Present decreased breath sounds and diminished air movement *Routine Cardiovascular Exam Cardiovascular: Present RRR, Normal S1 and Normal S2 *Routine Abdominal Exam Abdominal: Present soft and normoactive bowel sounds *Routine Rectal Exam Rectal:: deferred *Routine Genitalia Exam Genitalia:: deferred *Routine Extremities Exam Extremities: Present full ROM and pulses intact *Routine Skin Exam Skin: Present intact *Routine Neurological Exam Neurological: Present alert and oriented X3 Assessment and Plan *Assessment and plan (1) Sepsis: Status: Acute Category: Medical Code(s): A41.9 - Sepsis, unspecified organism (2) Right lower lobe pneumonia: Status: Acute Category: Medical Code(s): J18.9 - Pneumonia, unspecified organism (3) UTI (urinary tract infection): Status: Acute Category: Medical Code(s): N39.0 - Urinary tract infection, site not specified (4) Acute hypoxic respiratory failure: Status: Acute Category: Medical Code(s): J96.01 - Acute respiratory failure with hypoxia (5) Hypertension: Status: Acute Category: Medical Code(s): I10 - Essential (primary) hypertension (6) Depression with anxiety: Status: Acute Category: Medical Code(s): F41.8 - Other specified anxiety disorders (7) Type II diabetes mellitus: Status: Acute Category: Medical Code(s): E11.9 - Type 2 diabetes mellitus without complications Plan 59-year-old female with a past medical history of Asthma, ANABEL, DM, Depression/Anxiety and Hypertension who presents with a 1-day history of fevers, cough, dysuria, myalgias, headaches - Sepsis Sepsis Criteria met on admission includes: Temperature 103.2, HR 137, RR 25, Source: UTI/Pneumonia Did not meet criteria for Septic Shock Given Fluids in the ER, LR x 1 liter Cultures drawn in the ER Treating empirically with Rocephin, Azithromycin - Pneumonia Urine for strep, legionella, sputum ordered Placed on Duonebs Antibiotics Rocephin, Azithromycin Follow clinically - Acute Hypoxic Respiratory Failure Continue oxygen supplementation Titrate to keep oxygen 92% or greater Does not wear oxygen at home - UTI Continue Rocephin Follow urine cultures - Diabetes Takes Monjouro once weekly Will place on Sliding scale while hospitalized Will check A1c with am labs - Hyponatremia Mild, will place on iv fluids Check urine osmolality, urine sodium, serum osmolality If does not improve check CT of the chest, history of smoking, quit 27 years ago - Hypertension Takes Losartan at home Will continue once medications reconcilled - Anxiety/Depression Takes Prozac at home, will continue once medications are reconcilled - DVT ppx Lovenox
--- NOTE | 2024-04-27 23:15 | EXP.SEPSISRE ---
[facility] Tissue Perfusion Eval Sepsis Re-Evaluation Performed: Yes Date Performed: 04/27/24 Time Performed: 23:20
--- NOTE | 2024-04-27 23:32 | PC.NURSE ---
Patient arrived to floor via wheelchair from ED at 23:30.
[2024-04-27 23:34] LABS: HIV Combo NEGATIVE (Negative)
[2024-04-27] MEDS: AZITHROMYCIN 500 MG in 0.9 % SODIUM CHLORIDE 250 ML 250 MG IV (23:39)
[2024-04-27] MEDS: 0.9 % SODIUM CHLORIDE 1000ML 1,000 ML 75 ML IV (23:40)
[2024-04-28] VITALS (12 sets, daily range): BP systolic 116–140; BP diastolic 55–76; PULSE 71–122; RESP 18–20; TEMP 36.8–38.1; O2SAT 90–98; BMI 37.5
[2024-04-28] MEDS: IPRATROPIUM/ALBUTEROL 3 ML NEB IH ×5 (00:52→23:30)
[2024-04-28] MEDS: SODIUM CHLORIDE 3% 15ML NEB 3 ML IH (00:52)
--- NOTE | 2024-04-28 04:23 | PC.NURSE ---
Ms Ruth Dillon was newly admitted last night on behalf of the following documented diagnoses: pneumonia, UTI, sepsis, and acute respiratory failure. She reported having fevers, flu-like symptoms, and shortness of breath since the past day. She has not reported having any significant pain other than generalized body aches. She also has not reported having further nausea or vomiting this shift. Admission assessment and home medication reconciliation was completed this shift. She is alert and oriented x4. Patient was given the rest of her sepsis-criteria LR boluses on the floor this shift (see MAR). Patient was also given IV azithromycin per JUL and currently has normal saline infusing at 75 mL/hr. She has scheduled breathing treatments as well. Auscultation of her heart and bowels were within normal limits. She has been running normal sinus/sinus tachycardia on telemetry; a continuous pulse ox is also in place. Her lung sounds were clear but diminished. Patient reports having a cough that is both productive/nonproductive at times. She has been tolerating 2 L of oxygen via nasal cannula due to previously dropping oxygen saturations. Patient ambulates to the bathroom with supervision; she tolerates ambulation fairly. At this time, the patient is observed to have eyes closed, respirations even and unlabored, and no apparent distress. No acute changes noted thus far. Call light within reach. A sputum sample has not been collected thus far.
[2024-04-28 06:08] LABS: POC Glucose,Bedside 108 (70-110)
--- NOTE | 2024-04-28 06:08 | PC.NURSE ---
Alexis [facility] was paged at this time to obtain an order for Tylenol. Patient reported having a headache with chills. Patient's current oral temperature is 99.7.
[2024-04-28] MEDS: ACETAMINOPHEN 325MG TAB 650 MG PO ×3 (06:15→21:18)
--- NOTE | 2024-04-28 06:33 | PC.NURSE ---
Pt. stated that she would have her Symbicort inhaler brought from home today.
[2024-04-28 07:00] LABS: Red Blood Count 4.28 M/mm3 (4.20-5.40); White Blood Count 15.3 K/mm3 (4.8-10.8)
[2024-04-28 07:01] LABS: Basophils % 0.3 % (0.1-2.0); Eosinophils % 0.1 % (0.1-12.0); Hematocrit 38.4 % (37.0-47.0); Hemoglobin 13.2 g/dL (12.2-16.2); Lymphocytes # 0.9 K/mm3 (0.7-4.5); Lymphocytes % 5.8 % (10-50); Mean Corpuscular HGB Conc 34.4 g/dL (31.8-35.4); Mean Corpuscular Hemoglobin 30.8 pg (27.0-31.2); Mean Corpuscular Volume 89.7 fl (81-99); Mean Platelet Volume 10.3 fl (7.4-10.4); Monocytes % 1.8 % (1.7-9.3); Neutrophils # 13.9 K/mm3 (1.8-7.8); Neutrophils % 91.5 % (37.0-80.0); Platelet Count 209 K/mm3 (142-424); Red Cell Distribution Width 14.6 % (11.5-17.5)
[2024-04-28 07:02] LABS: Basophils # 0.1 K/mm3 (0-0.2); Monocytes # 0.3 K/mm3 (0.1-1.0)
[2024-04-28 07:03] LABS: Chloride 109 mmol/L (98-107); MANUAL DIFFERENTIAL MANUAL DIFFERENTIAL (MANUAL DIFF)
[2024-04-28 07:04] LABS: Albumin Level 3.8 g/dl (3.5-5.0); Potassium 3.8 mmoL/L (3.5-5.1); Sodium 137 mmol/L (136-145)
[2024-04-28 07:06] LABS: Anion Gap 5.8 mEq/L (5-15); Blood Urea Nitrogen 7 mg/dl (7-17); Carbon Dioxide 26 mmol/L (22.0-30.0); Creatinine Clearance Estimated 161 mL/min (50-200); Estimated Glomerular Filt Rate 102 ml/min (>60); GFR (African American) 123 ML/MIN (>60)
[2024-04-28 07:07] LABS: Alanine Aminotransferase 32 U/L (12-78); Albumin/Globulin Ratio 1.4 (1.1-1.8); Alkaline Phosphatase 99 U/L (38-126); Aspartate Amino Transferase 32 U/L (14-36); Bilirubin,Total 0.9 mg/dl (0.2-1.3); Calcium 8.8 mg/dl (8.4-10.2); Globulin 2.8 g/dL (1.3-3.2); Glucose 143 mg/dl (74-100); Total Protein,Serum 6.6 g/dl (6.3-8.2)
--- NOTE | 2024-04-28 07:50 | HMH.PHAINT1 ---
Pharmacy Intervention Comments: Home medication list verified using LIST FROM OUTPATIENT PHARMACY
[2024-04-28] MEDS: IRBESARTAN 75MG TABLET 75 MG PO (08:52)
[2024-04-28 09:34] LABS: Eosinophils % 1 % (0-3); Lymphocytes % 6 % (10-50); Neutrophils % 93 % (42-76); Platelet Estimate Normal; RBC Morphology Normal; Total Cells Counted 100
[2024-04-28 10:57] LABS: POC Glucose,Bedside 102 (70-110)
--- NOTE | 2024-04-28 12:57 | P.PN_ITS ---
Subjective *Date: 04/28/24 *Time: 13:16 Interval history: Patient states her dysuria has significantly improved today. She also states she feels better overall. Denies chest pain, shortness of breath. Exam Data for Last 24 hours Vital signs and Labs for Last 24 Hours: Temp Pulse Resp BP Pulse Ox O2 Del Method O2 Flow Rate 98.5 F 93 H 18 116/55 L 95 Nasal Cannula 1 04/28/24 12:00 04/28/24 12:00 04/28/24 12:00 04/28/24 12:00 04/28/24 12:00 04/28/24 12:00 04/28/24 12:00 Laboratory Results - last 24 hr 04/27/24 21:07: Urine Color Yellow, Urine Appearance Clear, Urine pH 6.5, Ur Specific [place] 1.015, Urine Protein Trace, Urine Glucose (UA) Negative, Urine Ketones Negative, Urine Blood Trace-i, Urine Nitrate Negative, Urine Bilirubin Negative, Urine Urobilinogen 0.2, Ur Leukocyte Esterase Trace, Urine RBC 50-100, Urine WBC Tntc, Ur Squamous Epith Cells 10-20, Urine Bacteria 2+, Urine Mucus 1+, Urine Sodium 153.0 H 04/27/24 21:20: WBC 14.2 H, RBC 4.33, Hgb 13.1, Hct 38.3, MCV 88.5, MCH 30.3, MCHC 34.2, RDW 14.3, Plt Count 190, MPV 11.2 H, Neut % (Auto) 86.2 H, Lymph % (Auto) 8.1 L, [place] % (Auto) 4.1, Eos % (Auto) 0.4, Baso % (Auto) 0.4, Neut # (Auto) 12.3 H, Lymph # (Auto) 1.2, [place] # (Auto) 0.6, Eos # (Auto) 0.1, Baso # (Auto) 0.1, Total Counted 100, Neutrophils % (Manual) 84 H, Lymphocytes % (Manual) 12, Monocytes % (Manual) 3, Eosinophils % (Manual) 1, Platelet Estimate Normal, Stomatocytes 1+, PT 10.0 L, INR 0.88 L, APTT 24.2, Sodium 132 L, Potassium 4.0, Chloride 107, Carbon Dioxide 23, Anion Gap 6.0, BUN 10, Creatinine 0.60, Estimated Creat Clear 154, Estimated GFR 102, Est GFR ( Amer) 123, Glucose 148 H, Lactate 0.9, Calcium 9.1, Total Bilirubin 1.0, AST 45 H, ALT 37, Alkaline Phosphatase 94, Total Protein 7.2, Albumin 4.2, Globulin 3.0, Albumin/Globulin Ratio 1.4, HIV Ag/Ab Combo Qual Negative 04/27/24 21:21: Chlamy pneumoniae PCR Not detected, Adenovirus (PCR) Not detected, B. pertussis DNA (PCR) Not detected, Coronavirus OC43 (PCR) Not det ected, Coronavirus HKU1 (PCR) Not detected, Coronavirus 229E (PCR) Not detected, SARS-CoV-2 (PCR) Not detected, Coronavirus NL63 (PCR) Not detected, Human Metapneumovir PCR Not detected, Influenza A (H1) PCR Not detected, Influ A (H1N1/09) PCR Not detected, Influenza A (H3) PCR Not detected, Influenza Type A (PCR) Not detected, Influenza Type B (PCR) Not detected, M. pneumoniae (PCR) Not detected, Parainfluenza 1 (PCR) Not detected, Parainfluenza 2 (PCR) Not detected, Parainfluenza 3 (PCR) Not detected, Parainfluenza 4 (PCR) Not detected, RSV (PCR) Not detected, Entero/Rhino (PCR) Not detected 04/28/24 05:40: POC Glucose 108 04/28/24 06:48: WBC 15.3 H, RBC 4.28, Hgb 13.2, Hct 38.4, MCV 89.7, MCH 30.8, MCHC 34.4, RDW 14.6, Plt Count 209, MPV 10.3, Neut % (Auto) 91.5 H, Lymph % (Auto) 5.8 L, [place] % (Auto) 1.8, Eos % (Auto) 0.1, Baso % (Auto) 0.3, Neut # (Auto) 13.9 H, Lymph # (Auto) 0.9, [place] # (Auto) 0.3, Eos # (Auto) 0.0, Baso # (Auto) 0.1, Total Counted 100, Neutrophils % (Manual) 93 H, Lymphocytes % (Manual) 6 L, Eosinophils % (Manual) 1, Platelet Estimate Normal, RBC Morphology Normal, Sodium 137, Potassium 3.8, Chloride 109 H, Carbon Dioxide 26, Anion Gap 5.8, BUN 7 D, Creatinine 0.60, Estimated Creat Clear 161, Estimated GFR 102, Est GFR ( Amer) 123, Glucose 143 H, Calcium 8.8, Total Bilirubin 0.9, AST 32 D, ALT 32, Alkaline Phosphatase 99, Total Protein 6.6, Albumin 3.8, Globulin 2.8, Albumin/Globulin Ratio 1.4 04/28/24 10:49: POC Glucose 102 I & O for Last 24 hours: Intake & Output 04/25/24 04/26/24 04/27/24 04/28/24 23:59 23:59 23:59 23:59 Intake Total 3018 / 3018 Output Total 150 / 150 Balance 2868 / 2868 Weight 97.976 kg 102.104 kg Microbiology Reports for the Last 24 Hours: Microbiology 04/27/24 21:07 Urine,Clean Catch Urine Culture - Preliminary Gram Negative Rods Constitutional Constitutional: no acute distress *Routine HEENT Exam Head: Present normocephalic Eye: Present EOMI and PERRL ENT: Present mucous membranes moist *Routine Neck Exam Neck: Present supple; Absent lymphadenopathy *Routine Respiratory Exam Respiratory: Present CTA bilaterally *Routine Cardiovascular Exam Cardiovascular: Present RRR *Routine Abdominal Exam Abdominal: Present soft and normoactive bowel sounds; Absent tenderness *Routine Extremities Exam Extremities: Absent cyanosis, clubbing or edema *Routine Skin Exam Skin: Present warm; Absent rash *Routine Neurological Exam Neurological: Present alert and oriented X3 Assessment and Plan *Assessment and plan (1) Sepsis: Status: Acute Category: Medical Code(s): A41.9 - Sepsis, unspecified organism (2) Right lower lobe pneumonia: Status: Acute Category: Medical Code(s): J18.9 - Pneumonia, unspecified organism (3) UTI (urinary tract infection): Status: Acute Category: Medical Code(s): N39.0 - Urinary tract infection, site not specified (4) Acute hypoxic respiratory failure: Status: Acute Category: Medical Code(s): J96.01 - Acute respiratory failure with hypoxia (5) Hypertension: Status: Acute Category: Medical Code(s): I10 - Essential (primary) hypertension (6) Depression with anxiety: Status: Acute Category: Medical Code(s): F41.8 - Other specified anxiety disorders (7) Type II diabetes mellitus: Status: Acute Category: Medical Code(s): E11.9 - Type 2 diabetes mellitus without complications Plan 59-year-old female with a past medical history of Asthma, ANABEL, DM, Depression/Anxiety and Hypertension who presents with a 1-day history of fevers, cough, dysuria, myalgias, headaches #Acute hypoxic respiratory failure #Sepsis #UTI #Suspected community-acquired pneumonia ? Initial temperature 103.2, HR 137, RR 25, Source: UTI/Pneumonia ? Continues to have tachycardia, leukocytosis. ? WBC bumped slightly from 14.2 was 15.3. ? Continue ceftriaxone, azithromycin. ? Patient states her dysuria has significantly improved today. ? Urine culture showing gram-negative rods. Pending speciation and sensitivities. Follow-up blood cultures. ? Follow-up CBC this afternoon, consider broadening antibiotics out of concern for MDR UTI. ? Currently on 1 L nasal cannula, wean as tolerated. #Diabetes Takes Monjouro once weekly Will place on Sliding scale while hospitalized Will check A1c with am labs #Hypertension Takes Losartan at home Will continue once medications reconcilled ? BP soft at this time, resume when appropriate. #Anxiety/Depression ? Resumed home fluoxetine. #GERD ? Resume home PPI #Restless leg syndrome ? Resume home ropinirole. - DVT ppx Lovenox
[2024-04-28] MEDS: PIPERCILLIN/TAZO 3.375 GM in 0.9 % SODIUM CHLORIDE 50 ML IV ×2 (14:12→21:19)
[2024-04-28 17:56] LABS: POC Glucose,Bedside 111 (70-110)
[2024-04-28] MEDS: FLUTICASONE/SALMETEROL 250/50MCG DISKUS 1 PUFF IH (18:22)
[2024-04-28 21:15] LABS: POC Glucose,Bedside 138 (70-110)
[2024-04-28] MEDS: ROPINIROLE 1MG TABLET 3 MG PO (21:18)
[2024-04-28] MEDS: BACLOFEN 10MG TABLET 10 MG PO (21:19)
[2024-04-28] MEDS: PHENAZOPYRIDINE 200MG TABLET 200 MG PO (21:19)
[2024-04-28] MEDS: PROMETHAZINE 25MG TABLET 25 MG PO (21:19)
[2024-04-28] MEDS: MONTELUKAST SODIUM 10MG TAB 10 MG PO (21:19)
[2024-04-28] MEDS: PANTOPRAZOLE 40MG TABLET 40 MG PO (21:19)
[2024-04-28] MEDS: AMLODIPINE 10MG TABLET 10 MG PO (21:19)
[2024-04-28] MEDS: FLUOXETINE 20MG CAPSULE 60 MG PO (21:19)
[2024-04-28] MEDS: AZITHROMYCIN 500 MG in 0.9 % SODIUM CHLORIDE 250 ML 250 MG IV (21:22)
[2024-04-28] MEDS: 0.9 % SODIUM CHLORIDE 1000ML 1,000 ML 75 ML IV (22:25)
[2024-04-29] VITALS: PULSE 90
[2024-04-29 03:51] VITALS: BP 123/68; PULSE 81; RESP 18; TEMP 36.8; BMI 39.1
[2024-04-29 04:00] VITALS: PULSE 80
--- NOTE | 2024-04-29 04:20 | CT_ITS ---
PROCEDURE INFORMATION: Exam: CTA Chest With Contrast Exam date and time: 04/29/2024 4:37 AM Age: 59 years old Clinical indication: Shortness of breath; Additional info: Increasing shortness of air, history of pe TECHNIQUE: Imaging protocol: Computed tomographic angiography of the chest with contrast. Exam focused on the arteries. 3D rendering (Not supervised by radiologist): MIP and/or 3D reconstructed images were created by the technologist. Radiation optimization: All CT scans at this facility use at least one of these dose optimization techniques: automated exposure control; mA and/or kV adjustment per patient size (includes targeted exams where dose is matched to clinical indication); or iterative reconstruction. Contrast material: ISOVUE; Contrast volume: 80 ml; Contrast route: INTRAVENOUS (IV); COMPARISON: CR XR CHEST 2V 04/27/2024 9:32 PM FINDINGS: Pulmonary arteries: Normal. No pulmonary emboli. Aorta: Unremarkable. No aortic aneurysm. No aortic dissection. Lungs: Bibasilar airspace opacity, atelectasis versus infiltrate. Pleural spaces: Unremarkable. No pneumothorax. No pleural effusion. Heart: Unremarkable. No cardiomegaly. No pericardial effusion. Coronary arteries: Coronary atherosclerosis. Lymph nodes: Calcified lymph nodes are seen adjacent to the gastroesophageal junction. Bones/joints: Unremarkable. No acute fracture. Soft tissues: Unremarkable. IMPRESSION: 1. No evidence of pulmonary embolus. 2. Bibasilar airspace opacity, atelectasis versus early infiltrate. 3. Coronary atherosclerosis. 4. Densely calcified lymph nodes are seen adjacent to the gastroesophageal junction.
--- NOTE | 2024-04-29 04:31 | PC.NURSE ---
Patient left floor with staff for CT at 04:30.
--- NOTE | 2024-04-29 04:43 | PC.NURSE ---
Patient back from CT at 04:42.
[2024-04-29] MEDS: SODIUM CHLORIDE 0.9% 10ML SYR (RAD ONLY) 10 ML IV (04:45)
[2024-04-29] MEDS: IOPAMIDOL-370 (76%);100ML BOTTLE 70 ML IV (04:45)
[2024-04-29] MEDS: 0.9 % SODIUM CHLORIDE 50 ML VIAL IV (04:45)
[2024-04-29] MEDS: ACETAMINOPHEN 325MG TAB 650 MG PO (05:05)
[2024-04-29] MEDS: PIPERCILLIN/TAZO 3.375 GM in 0.9 % SODIUM CHLORIDE 50 ML IV (05:06)
[2024-04-29 05:09] LABS: Hematocrit 38.4 % (37.0-47.0); Hemoglobin 12.5 g/dL (12.2-16.2); Mean Corpuscular Hemoglobin 29.8 pg (27.0-31.2); Mean Corpuscular Volume 91.6 fl (81-99); Red Blood Count 4.19 M/mm3 (4.20-5.40); White Blood Count 7.7 K/mm3 (4.8-10.8)
[2024-04-29 05:10] LABS: Basophils # 0.1 K/mm3 (0-0.2); Basophils % 0.6 % (0.1-2.0); Eosinophils # 0.1 K/mm3 (0.0-0.4); Eosinophils % 0.6 % (0.1-12.0); Lymphocytes % 13.2 % (10-50); Mean Corpuscular HGB Conc 32.6 g/dL (31.8-35.4); Mean Platelet Volume 10.1 fl (7.4-10.4); Monocytes # 0.6 K/mm3 (0.1-1.0); Monocytes % 7.1 % (1.7-9.3); Neutrophils % 77.9 % (37.0-80.0); Platelet Count 183 K/mm3 (142-424); Red Cell Distribution Width 14.8 % (11.5-17.5)
--- NOTE | 2024-04-29 05:10 | PC.NURSE ---
Patient has been able to rest some tonight. Her O2 needs did increase though the night. She started the shift on 1 L NC and is now on 4L NC. Patient did drop into the mid 80s when a sleep. on 4L NC did stay in the low 90s. Patient did complain of increased SOB during the shift and told me that last time she had pneumonia she did end up getting a PE. Provider was notified of the SOB and increase oxygen demand and the history of PEs. Provider placed orders in the chart. Other than the SOB patient only complaint has been a headache that she has had through the shift and has been medicated per jul. No other issues through the night.
[2024-04-29 05:15] LABS: Alanine Aminotransferase 28 U/L (12-78); Albumin Level 3.6 g/dl (3.5-5.0); Albumin/Globulin Ratio 1.3 (1.1-1.8); Alkaline Phosphatase 84 U/L (38-126); Anion Gap 8.6 mEq/L (5-15); Aspartate Amino Transferase 31 U/L (14-36); Bilirubin,Total 0.9 mg/dl (0.2-1.3); Blood Urea Nitrogen 5 mg/dl (7-17); Calcium 8.5 mg/dl (8.4-10.2); Carbon Dioxide 29 mmol/L (22.0-30.0); Chloride 105 mmol/L (98-107); Creatinine Clearance Estimated 144 mL/min (50-200); Estimated Glomerular Filt Rate 85 ml/min (>60); GFR (African American) 103 ML/MIN (>60); Globulin 2.8 g/dL (1.3-3.2); Glucose 132 mg/dl (74-100); Potassium 3.6 mmoL/L (3.5-5.1); Sodium 139 mmol/L (136-145); Total Protein,Serum 6.4 g/dl (6.3-8.2)
[2024-04-29 05:39] LABS: POC Glucose,Bedside 115 (70-110)
[2024-04-29] MEDS: IPRATROPIUM/ALBUTEROL 3 ML NEB IH ×2 (06:53→11:16)
[2024-04-29] MEDS: FLUTICASONE/SALMETEROL 250/50MCG DISKUS 1 PUFF IH (06:53)
[2024-04-29 07:01] VITALS: PULSE 87; O2SAT 93
[2024-04-29 08:00] VITALS: BP 106/54; PULSE 80; PULSE 90; RESP 19; TEMP 37.2; O2SAT 93
[2024-04-29] MEDS: PHENAZOPYRIDINE 200MG TABLET 200 MG PO ×2 (08:36→12:26)
[2024-04-29] MEDS: IRBESARTAN 75MG TABLET 75 MG PO (08:36)
[2024-04-29] MEDS: ENOXAPARIN 40MG/0.4ML SYRINGE 40 MG SUBCUT (08:36)
[2024-04-29 10:48] LABS: POC Glucose,Bedside 120 (70-110)
[2024-04-29 11:16] VITALS: PULSE 84; O2SAT 90
[2024-04-29] MEDS: FUROSEMIDE 40MG/4ML VIAL 40 MG IV (12:26)
[2024-04-29 12:35] LABS: NT Pro Brain Natriuretic Pep. 502 pg/mL (0-125)
--- NOTE | 2024-04-29 12:40 | XR_ITS ---
PROCEDURE INFORMATION: Exam: XR Chest Exam date and time: 04/29/2024 1:22 PM Age: 59 years old Clinical indication: Cough and shortness of breath; Additional info: SOB, cough TECHNIQUE: Imaging protocol: Radiologic exam of the chest. Views: 1 view. COMPARISON: CT ANGIO CHEST PE PROTOCOL 04/29/2024 4:37 AM FINDINGS: Lungs: Opacity in the medial right base may represent atelectasis or pneumonia.. Pleural spaces: Unremarkable. No pleural effusion. No pneumothorax. Heart/Mediastinum: Unremarkable. No cardiomegaly. Bones/joints: Unremarkable. IMPRESSION: Opacity in the medial right base may represent atelectasis or pneumonia..
[2024-04-29 12:57] LABS: Thyroid Stimulating Hormone 1.42 uIU/mL (0.465-4.68)
[2024-04-29] MEDS: PIPERACILLIN/TAZO 4.5 GM in 0.9 % SODIUM CHLORIDE 100 ML IV (13:16)
[2024-04-29 13:19] LABS: Free T4 (Free Thyroxine) 1.02 ng/dl (0.78-2.19)
--- NOTE | 2024-04-29 14:09 | P.DS_ITS ---
General Admission date:: 04/27/24 HPI HPI HPI: Ms. Dillon is a 59-year-old female with a past medical history that is positive for Asthma, Hypertension, Depression/Anxiety, Diabetes, Fatty Liver Disease who presents to [facility] with a 1-day history of burning with urination, cough, fevers, body aches, chills. 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 She reports that she has been taking Tylenol and Ibuprofen for fevers. In the ER, she underwent a Cxray that showed a consolidation in the right lower lobe. Urinalysis showed too numerous to count WBC, 2 plus bacteria. CBC showed a WBC 14.2. Lactic Acid, Covid, Flu and RSV are currently pending. HR was 137, RR was 25 and oxygen was 88 percent on room air. In the ER, the patient received: Rocephin 2 grams iv, Azithromycin 500 mg iv, LR x 1 liter. The patient is admitted with initial impression: Sepsis, Right Lower Lobe Pneumonia, UTI and Acute Hypoxic Respiratory Failure. Hospital Course Hospital Course Hospital Course: Ruth Dillon is a 59-year-old female with a past medical history of Asthma, ANABEL, DM, Depression/Anxiety and Hypertension who presents with a 1-day history of fevers, cough, dysuria, myalgias, headaches #Acute hypoxic respiratory failure, resolved #Sepsis #UTI #Suspected community-acquired pneumonia #Bacteremia ? Initial temperature 103.2, HR 137, RR 25, Source: UTI/Pneumonia ? Urine culture growing E. coli that is pansensitive. ? Blood cultures growing E. coli, Enterobacterales pending sensitivities. ? Patient clinically improved with ceftriaxone, Zosyn. Weaned to room air with appropriate saturations. ? Leukocytosis peaked at 15.3, improved to 7.7 today. ? No signs of sepsis. Vital signs stable. ? Discharged on Augmentin for 10 days. Will reach out to patient if sensitivities show resistance to Augmentin. #Diabetes Continue Monjouro once weekly #Hypertension ? Continue losartan, discontinued amlodipine as blood pressures were stable during hospitalization. #Anxiety/Depression ? Resumed home fluoxetine. #GERD ? Resume home PPI #Restless leg syndrome ? Resume home ropinirole. Exam Data for Last 24 hours Vital signs and Labs for Last 24 Hours: Temp Pulse Resp BP Pulse Ox O2 Del Method O2 Flow Rate 98.9 F 84 19 106/54 L 90 L Nasal Cannula 2 04/29/24 08:00 04/29/24 11:16 04/29/24 08:00 04/29/24 08:00 04/29/24 11:16 04/29/24 13:00 04/29/24 13:00 Laboratory Results - last 24 hr 04/27/24 21:20: PT 10.0 L, INR 0.88 L, APTT 24.2, Lactate 0.9 04/28/24 17:48: POC Glucose 111 H 04/28/24 21:08: POC Glucose 138 H 04/29/24 05:00: WBC 7.7 D, RBC 4.19 L, Hgb 12.5, Hct 38.4, MCV 91.6, MCH 29.8, MCHC 32.6, RDW 14.8, Plt Count 183, MPV 10.1, Neut % (Auto) 77.9, Lymph % (Auto) 13.2, [place] % (Auto) 7.1, Eos % (Auto) 0.6, Baso % (Auto) 0.6, Neut # (Auto) 6.0, Lymph # (Auto) 1.0, [place] # (Auto) 0.6, Eos # (Auto) 0.1, Baso # (Auto) 0.1, D- Dimer 1.10 H, Sodium 139, Potassium 3.6, Chloride 105, Carbon Dioxide 29, Anion Gap 8.6, BUN 5 L D, Creatinine 0.70, Estimated Creat Clear 144, Estimated GFR 85, Est GFR ( Amer) 103, Glucose 132 H, Calcium 8.5, Total Bilirubin 0.9, AST 31, ALT 28, Alkaline Phosphatase 84, Total Protein 6.4, Albumin 3.6, Globulin 2.8, Albumin/Globulin Ratio 1.3 04/29/24 05:08: POC Glucose 115 H 04/29/24 08:40: NT-Pro-B Natriuret Pep 502 H, TSH 1.42, Free T4 1.02 04/29/24 10:40: POC Glucose 120 H I & O for Last 24 hours: Intake & Output 04/26/24 04/27/24 04/28/24 04/29/24 23:59 23:59 23:59 23:59 Intake Total 3618 / 3718 780 / 780 Output Total 1000 / 1000 0 / 0 Balance 2618 / 2718 780 / 780 Weight 97.976 kg 102.104 kg 106.594 kg Microbiology Reports for the Last 24 Hours: Microbiology 04/27/24 21:20 Blood Blood Culture - Preliminary Gram Negative Rods 04/27/24 21:20 Blood Blood Culture - Preliminary Gram Negative Rods 04/27/24 21:07 Urine,Clean Catch Urine Culture - Final Escherichia coli Constitutional Constitutional: no acute distress *Routine HEENT Exam Head: Present normocephalic Eye: Present EOMI and PERRL ENT: Present mucous membranes moist *Routine Neck Exam Neck: Present supple; Absent lymphadenopathy *Routine Respiratory Exam Respiratory: Present CTA bilaterally *Routine Cardiovascular Exam Cardiovascular: Present RRR *Routine Abdominal Exam Abdominal: Present soft and normoactive bowel sounds; Absent tenderness *Routine Extremities Exam Extremities: Absent cyanosis, clubbing or edema *Routine Skin Exam Skin: Present warm; Absent rash *Routine Neurological Exam Neurological: Present alert and oriented X3 Results Data Completed and Pending Labs on day of discharge: Labs from last 24 hours 04/29/24 04/29/24 04/29/24 10:40 08:40 05:08 WBC RBC Hgb Hct MCV MCH MCHC RDW Plt Count MPV Neut % (Auto) Lymph % (Auto) [place] % (Auto) Eos % (Auto) Baso % (Auto) Neut # (Auto) Lymph # (Auto) [place] # (Auto) Eos # (Auto) Baso # (Auto) PT INR APTT D-Dimer Sodium Potassium Chloride Carbon Dioxide Anion Gap BUN Creatinine Estimated Creat Clear Estimated GFR Est GFR ( Amer) Glucose POC Glucose 120 H 115 H Lactate Calcium Total Bilirubin AST ALT Alkaline Phosphatase NT-Pro-B Natriuret Pep 502 H Total Protein Albumin Globulin Albumin/Globulin Ratio TSH 1.42 Free T4 1.02 04/29/24 04/28/24 04/28/24 05:00 21:08 17:48 WBC 7.7 D RBC 4.19 L Hgb 12.5 Hct 38.4 MCV 91.6 MCH 29.8 MCHC 32.6 RDW 14.8 Plt Count 183 MPV 10.1 Neut % (Auto) 77.9 Lymph % (Auto) 13.2 [place] % (Auto) 7.1 Eos % (Auto) 0.6 Baso % (Auto) 0.6 Neut # (Auto) 6.0 Lymph # (Auto) 1.0 [place] # (Auto) 0.6 Eos # (Auto) 0.1 Baso # (Auto) 0.1 PT INR APTT D-Dimer 1.10 H Sodium 139 Potassium 3.6 Chloride 105 Carbon Dioxide 29 Anion Gap 8.6 BUN 5 L D Creatinine 0.70 Estimated Creat Clear 144 Estimated GFR 85 Est GFR ( Amer) 103 Glucose 132 H POC Glucose 138 H 111 H Lactate Calcium 8.5 Total Bilirubin 0.9 AST 31 ALT 28 Alkaline Phosphatase 84 NT-Pro-B Natriuret Pep Total Protein 6.4 Albumin 3.6 Globulin 2.8 Albumin/Globulin Ratio 1.3 TSH Free T4 04/27/24 21:20 WBC RBC Hgb Hct MCV MCH MCHC RDW Plt Count MPV Neut % (Auto) Lymph % (Auto) [place] % (Auto) Eos % (Auto) Baso % (Auto) Neut # (Auto) Lymph # (Auto) [place] # (Auto) Eos # (Auto) Baso # (Auto) PT 10.0 L INR 0.88 L APTT 24.2 D-Dimer Sodium Potassium Chloride Carbon Dioxide Anion Gap BUN Creatinine Estimated Creat Clear Estimated GFR Est GFR ( Amer) Glucose POC Glucose Lactate 0.9 Calcium Total Bilirubin AST ALT Alkaline Phosphatase NT-Pro-B Natriuret Pep Total Protein Albumin Globulin Albumin/Globulin Ratio TSH Free T4 Preliminary micro results at discharge 04/27/24 21:20 Blood Culture - Preliminary Blood Gram Negative Rods 04/27/24 21:20 Blood Culture - Preliminary Blood Gram Negative Rods DS: Diagnosis Discharge Diagnosis (1) Sepsis: Status: Acute Code(s): A41.9 - Sepsis, unspecified organism (2) Right lower lobe pneumonia: Status: Acute Code(s): J18.9 - Pneumonia, unspecified organism (3) UTI (urinary tract infection): Status: Acute Code(s): N39.0 - Urinary tract infection, site not specified (4) Acute hypoxic respiratory failure: Status: Acute Code(s): J96.01 - Acute respiratory failure with hypoxia (5) Hypertension: Status: Acute Code(s): I10 - Essential (primary) hypertension (6) Depression with anxiety: Status: Acute Code(s): F41.8 - Other specified anxiety disorders (7) Type II diabetes mellitus: Status: Acute Code(s): E11.9 - Type 2 diabetes mellitus without complications Meds Home Medications and Allergies Home Medications ?Medication ?Instructions ?Recorded ?Confirmed ?Type albuterol 90 mcg/actuation aerosol 90 mcg inhalation NEEDED PRN 04/28/24 04/28/24 History inhaler Asthma amlodipine 5 mg tablet 10 mg PO DAILY 04/28/24 04/28/24 History baclofen 20 mg tablet 10 mg PO DAILY 04/28/24 04/28/24 History budesonide-formoterol HFA 160 2 puff inhalation Q12H 04/28/24 04/28/24 History mcg-4.5 mcg/actuation aerosol inhaler (Symbicort) fluoxetine 20 mg capsule 60 mg PO DAILY 04/28/24 04/28/24 History ipratropium 0.5 mg-albuterol 3 mg 3 ml inhalation NEEDED PRN 04/28/24 04/28/24 History (2.5 mg base)/3 mL nebulization Asthma soln losartan 50 mg tablet 50 mg PO DAILY 04/28/24 04/28/24 History montelukast 10 mg tablet 10 mg PO HS 04/28/24 04/28/24 History (Singulair) omeprazole 40 mg capsule,delayed 40 mg PO DAILY 04/28/24 04/28/24 History release plecanatide 3 mg tablet (Trulance) 3 mg PO DAILY 04/28/24 04/28/24 History ropinirole 1 mg tablet 3 mg PO HS 04/28/24 04/28/24 History tirzepatide 15 mg/0.5 mL 15 mg SQ WEEKLY 04/28/24 04/28/24 History subcutaneous pen injector (Mounjaro) amoxicillin 500 mg-potassium 1 tab PO BID 10 days #20 tabs 04/29/24 Rx clavulanate 125 mg tablet (Augmentin) New Prescriptions to Start Prescriptions: amoxicillin-pot clavulanate [Augmentin] Danny Hilton Allergies Allergy/AdvReac Type Severity Reaction Status Date / Time No Known Allergies Allergy Verified 03/04/21 13:20 Discharge Plan Disposition Patient Disposition: Home, Self-Care Condition: Fair Discharge Order Discharge Orders: Discharge Order (Routine); Ordered 04/29/24 Ordered By: Danny Hilton Follow up Plan Follow up with: Travis Gamboa MD [Primary Care Provider] - 05/04/24 (please call for appointment) Prescriptions/Medication Reconciliation: New amoxicillin-pot clavulanate [Augmentin] 500-125 mg tablet 1 tab PO BID 10 Days Qty: 20 0RF Continued fluoxetine 20 mg capsule 60 mg PO DAILY losartan 50 mg tablet 50 mg PO DAILY ropinirole 1 mg tablet 3 mg PO HS ipratropium-albuterol 0.5 mg-3 mg(2.5 mg base)/3 mL Solution For Nebulization 3 ml INHALATION NEEDED PRN (Reason: Asthma) omeprazole 40 mg capsule,delayed release(DR/EC) 40 mg PO DAILY baclofen 20 mg tablet 10 mg PO DAILY montelukast [Singulair] 10 mg Tablet 10 mg PO HS albuterol 90 mcg/actuation Aerosol 90 mcg INHALATION NEEDED PRN (Reason: Asthma) budesonide-formoterol [Symbicort] 160-4.5 mcg/actuation Hfa Aerosol Inhaler 2 puff INHALATION Q12H Mounjaro 15 mg/0.5 mL pen injector 15 mg SQ WEEKLY Rx Instructions: Patient takes on Tuesday mornings. Trulance 3 mg tablet 3 mg PO DAILY Held amlodipine 5 mg tablet 10 mg PO DAILY Hold Instructions: Resume on 05/13/24. Your blood pressures have been stable without this medication. Please talk to your PCP before restarting this medication. Problem Reconciliation Problems Reviewed?: Yes Patient Discharge Instructions Additional Instructions: Unfortunately clinic pharmacy is closed today. I have sent your prescription to [facility] in [place]. Patient Instructions: DI for Pneumonia -- Adult, DI for Urinary Tract Infection (UTI), DI for Sepsis -- Adult, DI for Respiratory Failure Print Language: Yakut Providers Primary Care Provider: Travis Gamboa Admit Provider: Danny Hilton Attending Provider: Danny Hilton
--- NOTE | 2024-04-29 14:51 | PC.NURSE ---
Pt weaned to RA pt 92% and above.
[2024-04-30 10:08] LABS: HCV Ab Non Reactive (Non Reactive)
--- NOTE | 2024-04-30 10:18 | SW/DCPLANNER ---
Spoke with patient on the phone. Patient stated that she is doing ok. Patient stated that she picked up her medication and that she has no concerns or questions at this time. Patient is aware of her upcoming appointment. Norris Carpio
[2024-05-01 11:20] LABS: Osmolality, Urine 438 mOsmol/kg (.)
[2024-05-03 18:08] LABS: Body Fluid Culture, Sterile Not indicated. (.); Organism ID Not indicated. (.); Specimen Source Urine (.); Streptococcus pneumoniae Ag Negative (Negative)
== END 2024-04-29 14:45 | disposition home or self-care (01) | DRG 871 ==
LOC: ER 21:15 → 2ND 23:05
PROVIDERS: Nurse Practitioner Family; Admitting Provider Student in an Organized Health Care Education/Training Program; Emergency Provider Student in an Organized Health Care Education/Training Program; PCP Internal Medicine; Visit Provider Student in an Organized Health Care Education/Training Program
DX: A41.9 Sepsis, unspecified organism (principal); J18.9 Pneumonia, unspecified organism; J96.01 Acute respiratory failure with hypoxia; N39.0 Urinary tract infection, site not specified; E87.1 Hypo-osmolality and hyponatremia; E11.9 Type 2 diabetes mellitus without complications; G47.33 Obstructive sleep apnea (adult) (pediatric); F32.A Depression, unspecified; F41.9 Anxiety disorder, unspecified; I10 Essential (primary) hypertension; K21.9 Gastro-esophageal reflux disease without esophagitis; G25.81 Restless legs syndrome; Z79.85 Long-term (current) use of injectable non-insulin antidiabetic drugs; E11.8 Type 2 diabetes mellitus with unspecified complications
CPT/HCPCS: 36415; 71045; 71046; 71275; 80053; 81001; 82962; 83605; 83880; 83935; 84439; 84443; 84540; 85007; 85025; 85378; 85610; 85730; 86803; 87040; 87077; 87086; 87088; 87186; 87389; 87633; 87899; 93005; 94640; 94761; 99285; J0456; J0696; J1650; J1940; J2543; J3475; J7030; J7050; J7120; J7620; Q9967